=== PATIENT | female | born 1965 | race Caucasian/White ===

== ENCOUNTER 2018-11-21 10:54 | Day surgery (SDC) | payer MEDICAID, OTHER ==
[2018-11-17 13:55] VITALS: BMI 28.6
[~2018-11-21 10:54] MED LIST: LACTATED RINGERS 1,000 ML IV SCH
[2018-11-21] MEDS ORDERED: LIDOCAINE 1% 20 ML VIAL (10MG/ML) FOR IV START INTRADERMA ONE (11:33)
[2018-11-21 11:35] VITALS: RESP 16; TEMP 98
[2018-11-21] MEDS ORDERED: LIDOCAINE 1% INJ 10MG/ML (20 ML MDV) ONE (12:07)
[2018-11-21] MEDS ORDERED: PROPOFOL 10 MG/ML 20 ML VIAL IV ONE (12:07)
--- NOTE | 2018-11-21 12:54 | P.PCN ---
Date of Procedure: 11/21/18 Description of Procedure: BRIEF HISTORY: Patient is a 53-year-old pleasant female scheduled for an elective colonoscopy as a part of screening for malignant neoplasm colon. Patient denies any prior colonoscopies. No family history of colon cancer. No blood per rectum, constipation or diarrhea. She does report a few episodes of bowel incontinence over the past few months. PROCEDURE PERFORMED: Colonoscopy. PREOPERATIVE DIAGNOSIS: Screening for malignant neoplasm of the colon, no prior colonoscopies. ESTIMATED BLOOD LOSS: Minimal. IV sedation per Anesthesia. PROCEDURE: After informed consent was obtained, the patient, was brought into the endoscopy unit. IV sedation was administered by Anesthesia under continuous monitoring. Digital rectal examination was normal. Initially the pediatric video colonoscope was then inserted in the rectum, gradually advanced into the cecum without any difficulty. Careful examination was performed as the scope was gradually being withdrawn. Ileocecal valve and the appendiceal orifice were visualized and appeared normal. Prep was excellent. Mucosa of the cecum, ascending colon, transverse colon, descending colon, sigmoid colon, and rectum appeared normal. Random biopsies taken of the left colon and right colon given patient's reports of stool incontinence. Mild left-sided diverticulosis noted. Patient did have quite a tortuous colon, fixed colon. 2 diminutive 2 mm sessile rectal polyps removed with cold forceps polypectomy. Retroflexion was performed in the rectum and no lesions were seen. The patient tolerated the procedure well. IMPRESSION: 2 diminutive rectal polyps removed with cold forceps. Tortuous, fixed colon, with random biopsies taken of the liver and left colon and reports of stool incontinence. RECOMMENDATIONS: Findings of this examination were discussed with the patient and her . Okay to resume diet. Await pathology from polypectomies. Repeat colonoscopy in 5-10 years pending pathology from polypectomies..
[2018-11-21 13:20] VITALS: BP 141/62; PULSE 59
== END 2018-11-21 14:13 | disposition home or self-care (01) ==
LOC: ORWHC2ENDO 10:54
PROVIDERS: ATTEND Internal Medicine
DX: Z12.11 Encounter for screening for malignant neoplasm of colon (principal); K62.1 Rectal polyp; Z87.891 Personal history of nicotine dependence
CPT/HCPCS: 88305; 45380; J2001; J2704

== ENCOUNTER → 2023-06-29 | Outpatient (CLI) | payer BC ==
--- NOTE | 2023-07-01 12:56 | MM ---
Reason for Exam: Screening (asymptomatic). Last mammogram was performed 9 year(s) and 5 month(s) ago. Patient History: Menarche at age 9. First Full-Term at age 23. Left ovary removed at age 41. Right ovary removed at age 41. Hysterectomy at age 41. Postmenopausal. Patient has history of breast feeding. Patient used Hormonal Contraceptives for 5 years. Risk Values: Indu 5 year model risk: 1.8%. NCI Lifetime model risk: 8.9%. Prior Study Comparison: 02/20/2009 Bilateral Screening Mammogram, [facility]. 08/26/2011 Bilateral Screening Mammogram, [facility]. 01/17/2014 Bilateral Screening Mammogram, [facility]. Tissue Density: There are scattered areas of fibroglandular density. Findings: Analyzed By CAD. Right breast: There is no suspicious group of microcalcifications or new suspicious mass. Left breast: There is no suspicious group of microcalcifications or new suspicious mass. Overall Assessment: Negative, BI-RAD 1 Management: Screening Mammogram of both breasts in [address] [facility] will attempt to contact patient to return for supplemental views and ultrasound if indicated. Patient should continue monthly self-breast exams. A clinical breast exam by your physician is recommended on an annual basis. This exam should not preclude additional follow-up of suspicious palpable abnormalities. Note on Indu scores and lifetime risk: 1. A Indu score greater than 3% is considered moderate risk. If this is the case, consider specialist referral to assess eligibility for a risk reducing agent. 2. If overall lifetime risk for the development of breast cancer is 20% or higher, the patient may qualify for future screening with alternating mammogram and breast MRI. Electronically signed and approved by: Michael Lin DO
== END | disposition home or self-care (01) ==
LOC: RADMAMWWP 08:29
PROVIDERS: ATTEND Family Medicine
DX: Z12.31 Encounter for screening mammogram for malignant neoplasm of breast (principal); Z78.0 Asymptomatic menopausal state
CPT/HCPCS: 77063; 77067